=== PATIENT | male | born 1940 | race Caucasian/White ===

== ENCOUNTER → 2016-05-05 | Outpatient (CLI) | payer OTHER, BC ==
[~2016-05-05] MED LIST: BENADRYL25 MG PO; COZAAR 50 MG TA50 M2 PO; DUREZOL5 ML OP; HYDROCODONE-AP1 EAC6 PO; MOBIC15 MG PO; NORVASC5 MG PO; OMEPRAZOLE 20 M20 M1 PO; XALATAN2.5 ML OPHTHALMIC; ZANAFLEX4 MG PO
== END ==
LOC: MRI 11:56
DX: M62.81 Muscle weakness (generalized) (principal); M76.52 Patellar tendinitis, left knee; M47.816 Spondylosis without myelopathy or radiculopathy, lumbar region; H44.529 Atrophy of globe, unspecified eye

== ENCOUNTER → 2018-06-06 | Outpatient (CLI) | payer OTHER | LOC: CAT 09:12 | DX: Z13.6 Encounter for screening for cardiovascular disorders (principal) ==